=== PATIENT | female | born 1975 | race Caucasian/White ===

== ENCOUNTER 2017-07-15 08:58 | Inpatient (IN) | payer BC ==
[2017-07-15 10:12] LABS: Basophils % (Auto) 0.2 % (0.0-1.8); Eosinophils % (Auto) 0.5 % (0.0-4.3); Hematocrit 44.3 % (30.3-42.9); Hemoglobin 14.9 gm/dl (10.1-14.3); Lymphocytes # (Auto) 2.2 K/mm3 (1.2-5.4); Lymphocytes % (Auto) 23.4 % (13.4-35.0); Mean Corpuscular HGB Conc 34 % (30-34); Mean Corpuscular Hemoglobin 30 pg (28-32); Mean Corpuscular Volume 90 fl (79-97); Monocytes # (Auto) 0.6 K/mm3 (0.0-0.8); Monocytes % (Auto) 6.7 % (0.0-7.3); Platelet Count 324 K/mm3 (140-440); Red Blood Count 4.91 M/mm3 (3.65-5.03); Red Cell Distribution Width 13.2 % (13.2-15.2)
[2017-07-15 10:28] LABS: Free T4 (Free Thyroxine) 1.28 ng/dL (0.76-1.46)
[2017-07-15 11:25] LABS: Alanine Aminotransferase 198 units/L (7-56); Albumin 4.6 g/dL (3.9-5); BUN/Creatinine Ratio 18; Blood Urea Nitrogen 16 mg/dL (7-17); Calcium 10.2 mg/dL (8.4-10.2); Hemolysis Index 5
[2017-07-15] MEDS ORDERED: D50W (25GM) Syringe IV PRN (11:42)
[2017-07-15] MEDS ORDERED: NACL 0.9% 1000 ML 1,000 ML IV ONE ×3 (11:43→13:26)
--- NOTE | 2017-07-15 11:45 | Emergency Department Report ---
Blank Doc - Documentation Documentation: Patient is 42 years old female with no significant past medical history. Patient presented to the ER complaining of dizziness, generalized weakness, nausea and vomiting. Patient current blood sugar is 488 with anion gap of 34. Patient is in acute DKA. Patient will need to be more to main ED for DKA treatment and admission to ICU.
--- NOTE | 2017-07-15 12:16 | Emergency Department Report ---
HPI - General Chief Complaint: Dizziness Time Seen by Provider: 07/15/17 11:38 - HPI HPI: The patient is a 42-year-old female who presents for evaluation of generalized weakness and lightheadedness. The patient reports progressive generalized weakness and lightheadedness, severe the past week, exacerbated with position changes or exertion, and improved with supine positioning at rest. She also admits to recurrent dryness of mouth, polyphagia, and polyuria. The patient denies fever, headache, neck pain, paresthesias, focal motor weakness, blurry vision, ear pain, tinnitus, chest pain, hemoptysis, dyspnea, abdominal pain, confusion or altered mental status, or recent URI or diarrhea. ED Past Medical Hx - Past Medical History Previous Medical History?: No Additional medical history: Thryoid Disease, fibroids. - Surgical History Past Surgical History?: No - Social History Smoking Status: Never Smoker - Medications Home Medications: Home Medications Medication Instructions Recorded Confirmed Last Taken Type Cyclobenzaprine [Flexeril 10mg] 10 mg PO TID PRN #30 tablet 07/18/14 Unknown Rx HYDROcodone/APAP 5-325 [[place] 1 each PO Q6HR PRN #15 tablet 07/18/14 Unknown Rx 5/325] Ibuprofen [Motrin] 800 mg PO Q8H #30 tablet 07/18/14 Unknown Rx methylPREDNISolone [Medrol Dose 4 mg PO DAILY 6 Days tab 07/18/14 Unknown Rx Raj] ED Review of Systems ROS: Stated complaint: DIZZINESS Other details as noted in HPI Constitutional: denies: fever ENT: denies: throat or neck pain Respiratory: denies: cough, shortness of breath Cardiovascular: denies: chest pain Endocrine: denies unexplained weight loss or gain Gastrointestinal: denies: abdominal pain, nausea Genitourinary: denies: dysuria Musculoskeletal: denies: leg swelling Skin: denies: rash Neurological: denies: headache Hematological/Lymphatic: denies: easy bleeding or easy bruising Psych: denies sadness or hopelessness Physical Exam - Physical Exam Vital Signs: Vital Signs 07/15/17 09:21 Temperature 98.9 F Pulse Rate 90 Respiratory 16 Rate Blood Pressure 136/68 O2 Sat by Pulse 99 Oximetry Physical Exam: General: well-nourished, well-developed, no acute distress Head: Normocephalic, atraumatic Eyes: normal sclera ENT: Mucous membranes are pale and dry Neck: No neck stiffness, no cervical adenopathy Respiratory: Breath sounds equal bilaterally, no wheezing, rales, or rhonchi Cardio: S1 and S2 present, no murmurs, rubs, gallops, capillary refill is delayed Abdomen: Normoactive bowel sounds, soft abdomen, no rigidity, no guarding or rebound tenderness Chest WALL/Back: No tenderness to palpation of the chest wall, no CVA tenderness with percussion Musc: No pitting edema Skin: No rash Neuro: no facial drooping, normal speech Psych: Normal affect ED Course Vital Signs 07/15/17 09:21 Temperature 98.9 F Pulse Rate 90 Respiratory 16 Rate Blood Pressure 136/68 O2 Sat by Pulse 99 Oximetry ED Medical Decision Making - Lab Data Result diagrams: 07/15/17 09:37 07/15/17 09:37 - Medical Decision Making The patient was seen and examined by myself. The patient is placed on a electronic device monitor and continuous pulse ox. On initial evaluation, the patient was found to be in no distress. Evaluation orders were placed. Lab results reveal significantly elevated glucose greater than 400, low bicarbonate, increased anion gap 30, consistent with acute diabetic ketoacidosis. The patient is given multiple normal saline fluid boluses and started on insulin drip. The on- call hospitalist service was contacted. They agreed to admit the patient for further treatment and close monitoring. The ED admit order was placed. The patient was admitted in guarded condition. Critical care attestation.: If time is entered above; I have spent that time in minutes in the direct care of this critically ill patient, excluding procedure time. ED Disposition Clinical Impression: Dehydration, Generalized weakness, Orthostatic dizziness DKA (diabetic ketoacidoses) Qualifiers: Diabetes mellitus type: type 2 Disposition: OP ADMIT IP TO THIS HOSP Is pt being admited?: Yes Does the pt Need Aspirin: Yes Condition: Serious Instructions: Diabetic Ketoacidosis (ED) Referrals: PRIMARY CARE, [Primary Care Provider] - 3-5 Days Time of Disposition: 11:55
[2017-07-15] MEDS ORDERED: ZOFRAN IV ONE (12:19)
--- NOTE | 2017-07-15 12:25 | History and Physical Report ---
History of Present Illness Chief complaint: I feel dizzy History of present illness: 42 YO Female with Obesity, Uterine Fibroids presents to ED for evaluation. Pt states that she has experienced dizziness and weakness over the past 3 weeks, with worsening symptoms over the past 3 days. Pt acknowledges polydipsia, polyruia, polyphagia, as well as blurred vision, and tingling sensation in her legs. Pt seen and evaluated in ED and found to have new onset diabetes complicated by DKA. Pt inititated on DKA protocol. Pt admitted to ICU. Pt denies fever, chills, CP, Palpitations, Trauma, Syncope, prolonged travel/ immobility, unilateral leg swelling, calf pain, brbpr, productive cough, hemoptysis, individual/family history of DVT/PE, skin rash, unintentional weight loss, or night sweats. Past History Past Medical History: other (obesity) Past Surgical History: No surgical history, Other (reviewed) Social history: , lives with family Family history: hypertension Medications and Allergies Allergies Allergy/AdvReac Type Severity Reaction Status Date / Time No Known Allergies Allergy Unverified 07/17/14 22:40 Home Medications Medication Instructions Recorded Confirmed Last Taken Type Cholecalciferol (Vitamin D3) 1,000 unit PO DAILY 07/15/17 07/15/17 07/14/17 History [Vitamin D3] Cyanocobalamin [Vitamin B-12] 1,000 mcg PO DAILY 07/15/17 07/15/17 07/14/17 History Multivitamin Tab [Multiple Vitamin 1 each PO QDAY 07/15/17 07/15/17 07/14/17 History TAB (Theragran)] Active Meds: Active Medications Dextrose (D50w (25gm) Syringe) 0 ml IV PRN PRN PRN Reason: Hypoglycemia Sodium Chloride (Nacl 0.9% 1000 Ml) 1,000 mls @ 999 mls/hr IV BOLUS ONE Stop: 07/15/17 12:43 Insulin Human Regular 100 (units/ Sodium Chloride) 100 mls @ 1 mls/hr IV TITR [facility]MER; Protocol Sodium Chloride (Nacl 0.9% 1000 Ml) 1,000 mls @ 999 mls/hr IV BOLUS ONE Stop: 07/15/17 12:43 Review of Systems Constitutional: no weight loss, no weight gain, no fever, no chills Ears, nose, mouth and throat: no ear pain, no ear discharge, no tinnitis, no decreased hearing, no nose pain, no nasal congestion, no nasal discharge Breasts: no change in shape, no swelling, no mass Cardiovascular: no chest pain, no orthopnea, no palpitations, no rapid/ irregular heart beat, no edema, no syncope, no lightheadedness, no shortness of breath Respiratory: no cough, no cough with sputum, no excessive sputum Gastrointestinal: no nausea, no vomiting, no diarrhea Genitourinary Female: no dysmenorrhea, no pelvic pain, no flank pain, no menorrhagia, no dysuria, no urinary frequency Rectal: no pain, no incontinence, no bleeding Musculoskeletal: no neck stiffness, no neck pain, no shooting arm pain, no arm numbness/tingling, no shooting leg pain Integumentary: no rash, no pruritis, no redness, no sores, no wounds, no jaundice, no boils Neurological: no head injury, no transient paralysis, no paralysis, no weakness , no parathesias, no numbness, no tingling Psychiatric: no anxiety, no memory loss, no change in sleep habits, no sleep disturbances, no insomnia, no hypersomnia, no change in appetite, no change in libido, no suicidal ideation Endocrine: no cold intolerance, no heat intolerance, no polyphagia, no excessive thirst, no polydipsia, no polyuria, no nocturia, no excessive sweating Hematologic/Lymphatic: no easy bruising, no easy bleeding, no lymphadenopathy, no lymphedema Allergic/Immunologic: no urticaria, no allergic rhinitis, no wheezing, no persistent infections, no anaphylaxis Exam - Constitutional Vitals: Temp Pulse Resp BP Pulse Ox 98.9 F 90 18 136/68 99 07/15/17 09:21 07/15/17 09:21 07/15/17 12:18 07/15/17 09:21 07/15/17 09:21 General appearance: Present: mild distress - EENT Eyes: Present: PERRL ENT: hearing intact, clear oral mucosa (dry oral mucosa) - Neck Neck: Present: supple, normal ROM - Respiratory Respiratory effort: normal Respiratory: bilateral: CTA - Cardiovascular Heart Sounds: Present: S1 & S2. Absent: rub, click - Extremities Extremities: pulses symmetrical, No edema Peripheral Pulses: within normal limits - Abdominal General gastrointestinal: Present: soft, non-tender, non-distended, normal bowel sounds Female genitourinary: Present: normal - Integumentary Integumentary: Present: clear, warm, dry - Musculoskeletal Musculoskeletal: gait normal, strength equal bilaterally - Psychiatric Psychiatric: appropriate mood/affect, intact judgment & insight - Neurologic Neurologic: CNII-XII intact, moves all extremities Results - Labs CBC & Chem 7: 07/15/17 09:37 07/15/17 09:37 Labs: Abnormal lab results 07/15/17 07/15/17 Range/Units 09:37 09:37 Hgb 14.9 H (10.1-14.3) gm/dl Hct 44.3 H (30.3-42.9) % Chloride 93.5 L (98-107) mmol/L Carbon Dioxide 16 L (22-30) mmol/L Glucose 488 H (65-100) mg/dL AST 143 H (5-40) units/L ALT 198 H (7-56) units/L Alkaline Phosphatase 134 H (35-129) units/L Assessment and Plan - Patient Problems (1) DKA (diabetic ketoacidoses) Current Visit: Yes Status: Acute Qualifiers: Diabetes mellitus type: type 1 Plan to address problem: DKA Protocol: Insulin Drip, IVF resuscitation, monitor uop q shift, serial bmp, monitor anion gap, (2) Metabolic acidosis Current Visit: Yes Status: Acute Plan to address problem: treat dka, ivf resuscitation (3) DVT prophylaxis Current Visit: Yes Status: Acute Plan to address problem: SCD to BLE while in bed
[2017-07-15] MEDS ORDERED: SODIUM CHLORIDE FLUSH SYRINGE 10 ML IV PRN (12:26)
[2017-07-15] MEDS ORDERED: PROVENTIL IH PRN (12:26)
[2017-07-15] MEDS ORDERED: NORCO 5/325 PO PRN (12:28)
[2017-07-15] MEDS ORDERED: FLEXERIL PO PRN (12:28)
[2017-07-15 13:05] LABS: HCG Qualitative,Urine Negative (Negative)
[2017-07-15] MEDS: HumuLIN R 100 UNITS in NACL 0.9% 99 ML IV SCH (13:11)
[2017-07-15 13:13] LABS: Bacteria,Urine 1+ /HPF (Negative); Bilirubin,Urine NEG (Negative); Blood,Urine LG (Negative); Color,Urine Yellow (Yellow); Mucus,Urine FEW /HPF; Urobilinogen,Urine < 2.0 mg/dL (<2.0)
[2017-07-15 13:52] LABS: BUN/Creatinine Ratio 19; Blood Urea Nitrogen 17 mg/dL (7-17); Calcium 9.5 mg/dL (8.4-10.2); Hemolysis Index 488
--- NOTE | 2017-07-15 14:04 | XRay Report ---
ROUTINE CHEST, TWO VIEWS: HISTORY: Diabetic ketoacidosis. The trachea, heart, mediastinal contour, lung hawk and bony thorax are unremarkable. IMPRESSION: Unremarkable chest x-ray.
[2017-07-15 14:36] LABS: BUN/Creatinine Ratio 19; Blood Urea Nitrogen 15 mg/dL (7-17); Calcium 8.4 mg/dL (8.4-10.2); Hemolysis Index 4
[2017-07-15 15:30] LABS: BUN/Creatinine Ratio 19; Blood Urea Nitrogen 13 mg/dL (7-17); Calcium 8.1 mg/dL (8.4-10.2); Hemolysis Index 4
[2017-07-15] MEDS: MOTRIN PO SCH ×2 (16:49→23:10)
[2017-07-15] MEDS: D5W 1,000 ML IV SCH ×2 (17:14→23:15)
[2017-07-15 21:48] LABS: BUN/Creatinine Ratio 18; Blood Urea Nitrogen 11 mg/dL (7-17); Calcium 8.1 mg/dL (8.4-10.2); Hemolysis Index 29
[2017-07-15] MEDS: SODIUM CHLORIDE FLUSH SYRINGE 10 ML IV SCH (23:11)
[2017-07-16] MEDS: HumuLIN R 100 UNITS in NACL 0.9% 99 ML IV SCH (04:23)
[2017-07-16 05:03] LABS: BUN/Creatinine Ratio 20; Blood Urea Nitrogen 10 mg/dL (7-17); Calcium 8.4 mg/dL (8.4-10.2); Hemolysis Index 20
[2017-07-16] MEDS: MOTRIN PO SCH (06:26)
[2017-07-16] MEDS: KCL 10MEQ/100ML 10 MEQ/100 ML BAG IV SCH ×2 (08:48→10:00)
[2017-07-16] MEDS ORDERED: D5W/0.45% NACL/KCL 20 MEQ 20 MEQ/1,000 ML BAG IV SCH (09:00)
--- NOTE | 2017-07-16 09:58 | Consultation ---
History of Present Illness - Reason for Consult Consult date: 07/16/17 DKA Requesting physician: MIRA PICKETT - History of Present Illness 42 y/o female with DKA. New diagnosis per report. Has had polydipsia and polyuria with some nausea. Started on IVF's and insulin drip. Anion Gap is now closed. Past History Past Medical History: other (obesity) Past Surgical History: No surgical history, Other (reviewed) Social history: , lives with family Family history: hypertension Medications and Allergies Allergies Allergy/AdvReac Type Severity Reaction Status Date / Time No Known Allergies Allergy Unverified 07/17/14 22:40 Home Medications Medication Instructions Recorded Confirmed Last Taken Type Cholecalciferol (Vitamin D3) 1,000 unit PO DAILY 07/15/17 07/15/17 07/14/17 History [Vitamin D3] Cyanocobalamin [Vitamin B-12] 1,000 mcg PO DAILY 07/15/17 07/15/17 07/14/17 History Multivitamin Tab [Multiple Vitamin 1 each PO QDAY 07/15/17 07/15/17 07/14/17 History TAB (Theragran)] Active Meds: Active Medications Acetaminophen/Hydrocodone Bitart ([place] 5/325) 1 each PO Q6HR PRN PRN Reason: Pain Albuterol (Proventil) 2.5 mg IH Q3HRT PRN PRN Reason: Shortness Of Breath Cyclobenzaprine HCl (Flexeril) 10 mg PO TID PRN PRN Reason: Muscle Spasm Dextrose (D50w (25gm) Syringe) 0 ml IV PRN PRN PRN Reason: Hypoglycemia Insulin Human Regular 100 (units/ Sodium Chloride) 100 mls @ 1 mls/hr IV TITR [place]; Protocol Last Titration: 07/16/17 09:10 Dose: 12 units/hr, 12 mls/hr Sodium Chloride (Nacl 0.9% 1000 Ml) 1,000 mls @ 125 mls/hr IV DIRECT [place] Potassium Chloride (Kcl 10meq/100ml) 10 meq in 100 mls @ 100 mls/hr IV Q1H [place] Stop: 07/16/17 12:59 Last Admin: 07/16/17 08:48 Dose: 100 mls/hr Potassium Chloride/Dextrose/Sod Cl (D5w/0.45% Nacl/Kcl 20 Meq) 20 meq in 1,000 mls @ 125 mls/hr IV DIRECT [facility] Last Admin: 07/16/17 08:49 Dose: 125 mls/hr Influenza Virus Vaccine Quadrival (Fluarix Quad [id number](36 Mos+) 0.5 ml IM .ONCE ONE Stop: 07/16/17 12:01 Sodium Chloride (Sodium Chloride Flush Syringe 10 Ml) 10 ml IV BID [facility] Last Admin: 07/15/17 23:11 Dose: 10 ml Sodium Chloride (Sodium Chloride Flush Syringe 10 Ml) 10 ml IV PRN PRN PRN Reason: LINE FLUSH Review of Systems All systems: negative Exam - Constitutional Vitals: Temp Pulse Resp BP Pulse Ox 97.8 F 58 L 19 112/59 100 07/16/17 04:00 07/16/17 08:50 07/16/17 08:50 07/16/17 08:50 07/16/17 08:50 General appearance: Present: no acute distress, well-nourished, obese - EENT Eyes: Present: PERRL, EOM intact ENT: hearing intact, clear oral mucosa, dentition normal - Neck Neck: Present: supple, normal ROM, other (large in circumference) - Respiratory Respiratory effort: normal Respiratory: bilateral: CTA - Cardiovascular Rhythm: regular Results - Labs CBC & Chem 7: 07/15/17 09:37 07/16/17 04:07 Labs: Abnormal lab results 07/15/17 07/15/17 07/15/17 Range/Units 09:37 09:37 09:37 Hgb 14.9 H (10.1-14.3) gm/dl Hct 44.3 H (30.3-42.9) % Sodium (137-145) mmol/L Potassium (3.6-5.0) mmol/L Chloride 93.5 L (98-107) mmol/L Carbon Dioxide 16 L (22-30) mmol/L Creatinine (0.7-1.2) mg/dL Glucose 488 H (65-100) mg/dL POC Glucose (70-105) Hemoglobin A1c 14.0 H (4-6) % Lactic Acid (0.7-2.0) mmol/L Calcium (8.4-10.2) mg/dL AST 143 H (5-40) units/L ALT 198 H (7-56) units/L Alkaline Phosphatase 134 H (35-129) units/L Urine WBC (Auto) (0.0-6.0) /HPF 07/15/17 07/15/17 07/15/17 Range/Units 12:20 12:20 12:45 Hgb (10.1-14.3) gm/dl Hct (30.3-42.9) % Sodium 132 L D (137-145) mmol/L Potassium 6.1 H* D (3.6-5.0) mmol/L Chloride 90.4 L (98-107) mmol/L Carbon Dioxide 9 L* D (22-30) mmol/L Creatinine (0.7-1.2) mg/dL Glucose 466 H (65-100) mg/dL POC Glucose (70-105) Hemoglobin A1c (4-6) % Lactic Acid 2.80 H* (0.7-2.0) mmol/L Calcium (8.4-10.2) mg/dL AST (5-40) units/L ALT (7-56) units/L Alkaline Phosphatase (35-129) units/L Urine WBC (Auto) 7.0 H (0.0-6.0) /HPF 07/15/17 07/15/17 07/15/17 Range/Units 13:14 13:50 14:19 Hgb (10.1-14.3) gm/dl Hct (30.3-42.9) % Sodium (137-145) mmol/L Potassium (3.6-5.0) mmol/L Chloride (98-107) mmol/L Carbon Dioxide 12 L (22-30) mmol/L Creatinine (0.7-1.2) mg/dL Glucose 367 H (65-100) mg/dL POC Glucose 413 H 364 H (70-105) Hemoglobin A1c (4-6) % Lactic Acid (0.7-2.0) mmol/L Calcium (8.4-10.2) mg/dL AST (5-40) units/L ALT (7-56) units/L Alkaline Phosphatase (35-129) units/L Urine WBC (Auto) (0.0-6.0) /HPF 07/15/17 07/15/17 07/15/17 Range/Units 15:01 16:50 18:09 Hgb (10.1-14.3) gm/dl Hct (30.3-42.9) % Sodium (137-145) mmol/L Potassium (3.6-5.0) mmol/L Chloride (98-107) mmol/L Carbon Dioxide 13 L (22-30) mmol/L Creatinine (0.7-1.2) mg/dL Glucose 283 H (65-100) mg/dL POC Glucose 227 H 237 H (70-105) Hemoglobin A1c (4-6) % Lactic Acid (0.7-2.0) mmol/L Calcium 8.1 L (8.4-10.2) mg/dL AST (5-40) units/L ALT (7-56) units/L Alkaline Phosphatase (35-129) units/L Urine WBC (Auto) (0.0-6.0) /HPF 07/15/17 07/15/17 07/15/17 Range/Units 19:59 21:05 21:16 Hgb (10.1-14.3) gm/dl Hct (30.3-42.9) % Sodium (137-145) mmol/L Potassium (3.6-5.0) mmol/L Chloride (98-107) mmol/L Carbon Dioxide 18 L (22-30) mmol/L Creatinine 0.6 L (0.7-1.2) mg/dL Glucose 203 H (65-100) mg/dL POC Glucose 218 H 180 H (70-105) Hemoglobin A1c (4-6) % Lactic Acid (0.7-2.0) mmol/L Calcium 8.1 L (8.4-10.2) mg/dL AST (5-40) units/L ALT (7-56) units/L Alkaline Phosphatase (35-129) units/L Urine WBC (Auto) (0.0-6.0) /[facility] 07/15/17 07/15/17 07/15/17 Range/Units 22:25 23:09 23:48 Hgb (10.1-14.3) gm/dl Hct (30.3-42.9) % Sodium (137-145) mmol/L Potassium (3.6-5.0) mmol/L Chloride (98-107) mmol/L Carbon Dioxide (22-30) mmol/L Creatinine (0.7-1.2) mg/dL Glucose (65-100) mg/dL POC Glucose 215 H 218 H 201 H (70-105) Hemoglobin A1c (4-6) % Lactic Acid (0.7-2.0) mmol/L Calcium (8.4-10.2) mg/dL AST (5-40) units/L ALT (7-56) units/L Alkaline Phosphatase (35-129) units/L Urine WBC (Auto) (0.0-6.0) /HPF 07/16/17 07/16/17 07/16/17 Range/Units 01:15 02:13 03:23 Hgb (10.1-14.3) gm/dl Hct (30.3-42.9) % Sodium (137-145) mmol/L Potassium (3.6-5.0) mmol/L Chloride (98-107) mmol/L Carbon Dioxide (22-30) mmol/L Creatinine (0.7-1.2) mg/dL Glucose (65-100) mg/dL POC Glucose 214 H 227 H 234 H (70-105) Hemoglobin A1c (4-6) % Lactic Acid (0.7-2.0) mmol/L Calcium (8.4-10.2) mg/dL AST (5-40) units/L ALT (7-56) units/L Alkaline Phosphatase (35-129) units/L Urine WBC (Auto) (0.0-6.0) /HPF 07/16/17 07/16/17 07/16/17 Range/Units 04:00 04:07 05:49 Hgb (10.1-14.3) gm/dl Hct (30.3-42.9) % Sodium 136 L (137-145) mmol/L Potassium 3.4 L (3.6-5.0) mmol/L Chloride (98-107) mmol/L Carbon Dioxide 17 L (22-30) mmol/L Creatinine 0.5 L (0.7-1.2) mg/dL Glucose 207 H (65-100) mg/dL POC Glucose 242 H 228 H (70-105) Hemoglobin A1c (4-6) % Lactic Acid (0.7-2.0) mmol/L Calcium (8.4-10.2) mg/dL AST (5-40) units/L ALT (7-56) units/L Alkaline Phosphatase (35-129) units/L Urine WBC (Auto) (0.0-6.0) /HPF 07/16/17 Range/Units 06:25 Hgb (10.1-14.3) gm/dl Hct (30.3-42.9) % Sodium (137-145) mmol/L Potassium (3.6-5.0) mmol/L Chloride (98-107) mmol/L Carbon Dioxide (22-30) mmol/L Creatinine (0.7-1.2) mg/dL Glucose (65-100) mg/dL POC Glucose 246 H (70-105) Hemoglobin A1c (4-6) % Lactic Acid (0.7-2.0) mmol/L Calcium (8.4-10.2) mg/dL AST (5-40) units/L ALT (7-56) units/L Alkaline Phosphatase (35-129) units/L Urine WBC (Auto) (0.0-6.0) /HPF - Imaging and Cardiology Chest x-ray: image reviewed (clear) Assessment and Plan 42 y/o female with new diagnosis of diabetes. 1. Education on diabetes. 2. Calculate total insulin needs and start long acting 3. Discontinue Insulin drip after starting long acting insulin 4. Weight loss 5. A1c 6. Should be stable for transfer out of unit. CCT 31 minutes.
[2017-07-16] MEDS: SODIUM CHLORIDE FLUSH SYRINGE 10 ML IV SCH ×2 (10:00→22:42)
[2017-07-16] MEDS ORDERED: LANTUS SUB-Q ONE (11:00)
[2017-07-16] MEDS ORDERED: HumaLOG SUB-Q SCH ×2 (11:30)
[2017-07-16] MEDS ORDERED: Fluarix Quad 2017-2018(36 MOS+ IM ONE (12:00)
--- NOTE | 2017-07-16 14:15 | Progress Note ---
Assessment and Plan - Patient Problems (1) DKA (diabetic ketoacidoses) Current Visit: Yes Status: Acute Qualifiers: Diabetes mellitus type: type 2 Plan to address problem: New onset Diabetes Hba1c 14.0 Will switch to basal bolus regimen. Patient is agreeable Transfer to regular floor Discharge in one to 2 days (2) Transaminitis Current Visit: Yes Status: Acute Plan to address problem: Hepatitis profile ordered (3) UTI (urinary tract infection) Current Visit: Yes Status: Acute Qualifiers: Urinary tract infection type: acute cystitis Plan to address problem: On Rocephin (4) Hypokalemia Current Visit: Yes Status: Acute Plan to address problem: Supplemented (5) DVT prophylaxis Current Visit: Yes Status: Acute Subjective Date of service: 07/16/17 Principal diagnosis: New onset Diabetes with DKA Interval history: Symptomatically better Objective - Constitutional Vitals: Vital Signs - 12hr 07/16/17 07/16/17 07/16/17 02:20 02:30 02:40 Temperature Pulse Rate 65 62 61 Pulse Rate [ From Monitor] Respiratory 20 20 18 Rate Blood Pressure 124/55 124/55 124/55 O2 Sat by Pulse 100 100 99 Oximetry 07/16/17 07/16/17 07/16/17 02:50 03:00 03:10 Temperature Pulse Rate 64 62 64 Pulse Rate [ From Monitor] Respiratory 19 17 17 Rate Blood Pressure 124/55 126/64 126/64 O2 Sat by Pulse 99 99 98 Oximetry 07/16/17 07/16/17 07/16/17 03:20 03:30 03:40 Temperature Pulse Rate 65 63 63 Pulse Rate [ From Monitor] Respiratory 20 18 18 Rate Blood Pressure 126/64 126/64 126/64 O2 Sat by Pulse 98 98 98 Oximetry 07/16/17 07/16/17 07/16/17 03:48 03:50 04:00 Temperature 97.8 F Pulse Rate 64 63 Pulse Rate [ 76 From Monitor] Respiratory 18 17 18 Rate Blood Pressure 126/64 126/63 O2 Sat by Pulse 100 97 97 Oximetry 07/16/17 07/16/17 07/16/17 04:10 04:20 04:30 Temperature Pulse Rate 64 61 61 Pulse Rate [ From Monitor] Respiratory 20 19 16 Rate Blood Pressure 126/63 126/63 126/63 O2 Sat by Pulse 99 98 97 Oximetry 0407/16/17 07/16/17 04:40 04:50 05:00 Temperature Pulse Rate 63 64 61 Pulse Rate [ From Monitor] Respiratory 20 17 20 Rate Blood Pressure 126/63 126/63 118/57 O2 Sat by Pulse 97 97 98 Oximetry 07/16/17 07/16/17 07/16/17 05:10 05:20 05:30 Temperature Pulse Rate 60 67 61 Pulse Rate [ From Monitor] Respiratory 21 20 18 Rate Blood Pressure 118/57 118/57 118/57 O2 Sat by Pulse 98 99 100 Oximetry 07/16/17 07/16/17 07/16/17 05:40 05:50 06:00 Temperature Pulse Rate 57 L 57 L 58 L Pulse Rate [ From Monitor] Respiratory 19 19 21 Rate Blood Pressure 118/57 118/57 115/56 O2 Sat by Pulse 100 99 100 Oximetry 07/16/17 07/16/17 07/16/17 06:10 06:20 06:30 Temperature Pulse Rate 59 L 59 L 61 Pulse Rate [ From Monitor] Respiratory 19 19 17 Rate Blood Pressure 115/56 115/56 115/56 O2 Sat by Pulse 99 99 98 Oximetry 07/16/17 07/16/17 07/16/17 06:40 06:50 07:00 Temperature Pulse Rate 61 63 59 L Pulse Rate [ From Monitor] Respiratory 17 18 16 Rate Blood Pressure 115/56 115/56 128/58 O2 Sat by Pulse 98 98 98 Oximetry 07/16/17 07/16/17 07/16/17 07:10 07:20 07:30 Temperature Pulse Rate 68 62 62 Pulse Rate [ From Monitor] Respiratory 18 17 17 Rate Blood Pressure 128/58 128/58 128/58 O2 Sat by Pulse 96 99 99 Oximetry 07/16/17 07/16/17 07/16/17 07:40 07:50 08:00 Temperature 98.7 F Pulse Rate 62 64 92 H Pulse Rate [ From Monitor] Respiratory 21 20 17 Rate Blood Pressure 128/58 128/58 128/58 O2 Sat by Pulse 100 100 99 Oximetry 07/16/17 07/16/17 07/16/17 08:10 08:20 08:30 Temperature Pulse Rate 60 59 L 67 Pulse Rate [ From Monitor] Respiratory 20 25 H 15 Rate Blood Pressure 112/59 112/59 112/59 O2 Sat by Pulse 100 100 100 Oximetry 07/16/17 07/16/17 07/16/17 08:31 08:40 08:50 Temperature Pulse Rate 59 L 58 L Pulse Rate [ From Monitor] Respiratory 19 19 Rate Blood Pressure 112/59 112/59 O2 Sat by Pulse 100 99 100 Oximetry 07/16/17 07/16/17 07/16/17 09:00 09:10 09:20 Temperature Pulse Rate 62 74 63 Pulse Rate [ From Monitor] Respiratory 19 22 19 Rate Blood Pressure 112/59 112/59 112/59 O2 Sat by Pulse 100 100 100 Oximetry 07/16/17 07/16/17 07/16/17 09:30 09:40 09:50 Temperature Pulse Rate 61 79 67 Pulse Rate [ From Monitor] Respiratory 20 22 19 Rate Blood Pressure 112/59 112/59 112/59 O2 Sat by Pulse 99 100 100 Oximetry 07/16/17 07/16/17 07/16/17 10:00 10:10 10:20 Temperature Pulse Rate 66 72 67 Pulse Rate [ From Monitor] Respiratory 24 25 H 21 Rate Blood Pressure 127/74 127/74 127/74 O2 Sat by Pulse 100 100 100 Oximetry 07/16/17 07/16/17 07/16/17 10:30 10:40 10:50 Temperature Pulse Rate 68 64 66 Pulse Rate [ From Monitor] Respiratory 20 20 19 Rate Blood Pressure 127/74 127/74 127/74 O2 Sat by Pulse 99 99 99 Oximetry 07/16/17 07/16/17 07/16/17 11:00 11:10 11:20 Temperature Pulse Rate 71 65 64 Pulse Rate [ From Monitor] Respiratory 15 21 21 Rate Blood Pressure 127/74 127/74 127/74 O2 Sat by Pulse 99 98 97 Oximetry 07/16/17 07/16/17 07/16/17 11:30 11:40 11:50 Temperature Pulse Rate 63 67 82 Pulse Rate [ From Monitor] Respiratory 24 15 20 Rate Blood Pressure 127/74 127/74 127/74 O2 Sat by Pulse 98 98 99 Oximetry 07/16/17 07/16/17 07/16/17 12:00 12:10 12:15 Temperature 98 F Pulse Rate 77 84 Pulse Rate [ From Monitor] Respiratory 18 12 Rate Blood Pressure 128/65 128/65 O2 Sat by Pulse 98 98 100 Oximetry 07/16/17 07/16/17 07/16/17 12:20 12:30 12:40 Temperature Pulse Rate 72 75 76 Pulse Rate [ From Monitor] Respiratory 24 25 H 24 Rate Blood Pressure 128/65 128/65 128/65 O2 Sat by Pulse 98 97 97 Oximetry 07/16/17 07/16/17 12:50 13:00 Temperature Pulse Rate 102 H 78 Pulse Rate [ From Monitor] Respiratory 25 H 30 H Rate Blood Pressure 128/65 128/65 O2 Sat by Pulse 98 98 Oximetry General appearance: Present: no acute distress, well-nourished - EENT Eyes: PERRL, EOM intact ENT: hearing intact, clear oral mucosa Ears: bilateral: normal - Neck Neck: supple, normal ROM - Respiratory Respiratory effort: normal Respiratory: bilateral: CTA - Breasts Breasts: deferred - Cardiovascular Heart rate: 80 Rhythm: regular Heart Sounds: Present: S1 & S2. Absent: gallop, rub Extremities: no ischemia, pulses intact, No edema, normal color, Full ROM - Gastrointestinal General gastrointestinal: Present: soft, non-tender, non-distended, normal bowel sounds - Genitourinary Female genitourinary: normal - Integumentary Integumentary: clear, warm, dry - Musculoskeletal Musculoskeletal: 1, strength equal bilaterally - Neurologic Neurologic: moves all extremities - Psychiatric Psychiatric: memory intact, appropriate mood/affect, intact judgment & insight - Allied health notes Allied health notes reviewed: nursing, case management - Labs CBC & Chem 7: 07/15/17 09:37 07/16/17 04:07 Labs: Abnormal lab results 07/15/17 07/15/17 07/15/17 Range/Units 13:50 14:19 15:01 Sodium (137-145) mmol/L Potassium (3.6-5.0) mmol/L Carbon Dioxide 12 L 13 L (22-30) mmol/L Creatinine (0.7-1.2) mg/dL Glucose 367 H 283 H (65-100) mg/dL POC Glucose 364 H (70-105) Calcium 8.1 L (8.4-10.2) mg/dL 07/15/17 07/15/17 07/15/17 Range/Units 15:33 16:50 18:09 Sodium (137-145) mmol/L Potassium (3.6-5.0) mmol/L Carbon Dioxide (22-30) mmol/L Creatinine (0.7-1.2) mg/dL Glucose (65-100) mg/dL POC Glucose 283 H 227 H 237 H (70-105) Calcium (8.4-10.2) mg/dL 07/15/17 07/15/17 07/15/17 Range/Units 19:59 21:05 21:16 Sodium (137-145) mmol/L Potassium (3.6-5.0) mmol/L Carbon Dioxide 18 L (22-30) mmol/L Creatinine 0.6 L (0.7-1.2) mg/dL Glucose 203 H (65-100) mg/dL POC Glucose 218 H 180 H (70-105) Calcium 8.1 L (8.4-10.2) mg/dL 07/15/17 07/15/17 07/15/17 Range/Units 22:25 23:09 23:48 Sodium (137-145) mmol/L Potassium (3.6-5.0) mmol/L Carbon Dioxide (22-30) mmol/L Creatinine (0.7-1.2) mg/dL Glucose (65-100) mg/dL POC Glucose 215 H 218 H 201 H (70-105) Calcium (8.4-10.2) mg/dL 07/16/17 07/16/17 07/16/17 Range/Units 01:15 02:13 03:23 Sodium (137-145) mmol/L Potassium (3.6-5.0) mmol/L Carbon Dioxide (22-30) mmol/L Creatinine (0.7-1.2) mg/dL Glucose (65-100) mg/dL POC Glucose 214 H 227 H 234 H (70-105) Calcium (8.4-10.2) mg/dL 07/16/17 07/16/17 07/16/17 Range/Units 04:00 04:07 05:49 Sodium 136 L (137-145) mmol/L Potassium 3.4 L (3.6-5.0) mmol/L Carbon Dioxide 17 L (22-30) mmol/L Creatinine 0.5 L (0.7-1.2) mg/dL Glucose 207 H (65-100) mg/dL POC Glucose 242 H 228 H (70-105) Calcium (8.4-10.2) mg/dL 07/16/17 07/16/17 07/16/17 Range/Units 06:25 08:13 09:15 Sodium (137-145) mmol/L Potassium (3.6-5.0) mmol/L Carbon Dioxide (22-30) mmol/L Creatinine (0.7-1.2) mg/dL Glucose (65-100) mg/dL POC Glucose 246 H 263 H 240 H (70-105) Calcium (8.4-10.2) mg/dL 07/16/17 07/16/17 Range/Units 10:24 11:27 Sodium (137-145) mmol/L Potassium (3.6-5.0) mmol/L Carbon Dioxide (22-30) mmol/L Creatinine (0.7-1.2) mg/dL Glucose (65-100) mg/dL POC Glucose 203 H 172 H (70-105) Calcium (8.4-10.2) mg/dL
[2017-07-16] MEDS: HumaLOG SUB-Q SCH ×2 (16:08→22:38)
[2017-07-16] MEDS ORDERED: LANTUS SUB-Q SCH (22:00)
[2017-07-16] MEDS: NACL 0.9% 1000 ML 1,000 ML IV SCH (22:41)
[2017-07-17] MEDS: HumaLOG SUB-Q SCH ×10 (02:50→23:28)
--- NOTE | 2017-07-17 08:57 | Progress Note ---
Assessment and Plan Assessment and plan: --Diabetic ketoacidosis; resolved Continue current management --Type 1 diabetes mellitus; uncontrolled Hemoglobin A1c 14, Accu-Chek sliding scale coverage and ADA diet Insulin NovoLog as well as Lantus Diabetic education, nutrition consult --Transaminitis; closely monitor LFTs Consider abdominal ultrasound, GI consult if needed Hepatitis panel if no improvement --Urinary tract infection; continue empiric antibiotics Follow cultures --DVT prophylaxis; Lovenox --DC planning; possible home health nurse for disease monitoring At the time of discharge History Interval history: Patient seen and examined medical records reviewed No new events reported by the nursing staff Blood sugars are still high Patient feels better no new complaints Vital signs reviewed Hospitalist Physical - Constitutional Vitals: Temp Pulse Resp BP Pulse Ox 98.9 F 65 20 110/65 98 07/17/17 07:49 07/17/17 07:49 07/17/17 07:49 07/17/17 07:49 07/17/17 07:49 General appearance: Present: no acute distress, well-nourished, obese - EENT Eyes: Present: PERRL, EOM intact - Neck Neck: Present: supple, normal ROM - Respiratory Respiratory effort: normal Respiratory: negative: rales, rhonchi, wheezing - Cardiovascular Rhythm: regular Heart Sounds: Present: S1 & S2 - Extremities Extremities: no ischemia, No edema - Abdominal General gastrointestinal: soft, non-tender, non-distended, normal bowel sounds - Integumentary Integumentary: Present: clear, warm - Psychiatric Psychiatric: appropriate mood/affect, cooperative - Neurologic Neurologic: CNII-XII intact, moves all extremities Results - Labs CBC & Chem 7: 07/15/17 09:37 07/16/17 04:07 Labs: Laboratory Last Values WBC 9.2 K/mm3 (4.5-11.0) 07/15/17 09:37 RBC 4.91 M/mm3 (3.65-5.03) 07/15/17 09:37 Hgb 14.9 gm/dl (10.1-14.3) H 07/15/17 09:37 Hct 44.3 % (30.3-42.9) H 07/15/17 09:37 MCV 90 fl (79-97) 07/15/17 09:37 MCH 30 pg (28-32) 07/15/17 09:37 MCHC 34 % (30-34) 07/15/17 09:37 RDW 13.2 % (13.2-15.2) 07/15/17 09:37 Plt Count 324 K/mm3 (140-440) 07/15/17 09:37 Lymph % (Auto) 23.4 % (13.4-35.0) 07/15/17 09:37 [place] % (Auto) 6.7 % (0.0-7.3) 07/15/17 09:37 Eos % (Auto) 0.5 % (0.0-4.3) 07/15/17 09:37 Baso % (Auto) 0.2 % (0.0-1.8) 07/15/17 09:37 Lymph # 2.2 K/mm3 (1.2-5.4) 07/15/17 09:37 [place] # 0.6 K/mm3 (0.0-0.8) 07/15/17 09:37 Eos # 0.0 K/mm3 (0.0-0.4) 07/15/17 09:37 Baso # 0.0 K/mm3 (0.0-0.1) 07/15/17 09:37 Seg Neutrophils % 69.2 % (40.0-70.0) 07/15/17 09:37 Seg Neutrophils # 6.4 K/mm3 (1.8-7.7) 07/15/17 09:37 Sodium 136 mmol/L (137-145) L 07/16/17 04:07 Potassium 3.4 mmol/L (3.6-5.0) L 07/16/17 04:07 Chloride 103.4 mmol/L (98-107) 07/16/17 04:07 Carbon Dioxide 17 mmol/L (22-30) L 07/16/17 04:07 Anion Gap 19 mmol/L 07/16/17 04:07 BUN 10 mg/dL (7-17) 07/16/17 04:07 Creatinine 0.5 mg/dL (0.7-1.2) L 07/16/17 04:07 Estimated GFR > 60 ml/min 07/16/17 04:07 BUN/Creatinine Ratio 20 % 07/16/17 04:07 Glucose 207 mg/dL (65-100) H 07/16/17 04:07 POC Glucose 206 (70-105) H 07/17/17 06:20 Hemoglobin A1c 14.0 % (4-6) H 07/15/17 09:37 Lactic Acid 1.30 mmol/L (0.7-2.0) 07/15/17 13:50 Calcium 8.4 mg/dL (8.4-10.2) 07/16/17 04:07 Phosphorus 4.20 mg/dL (2.5-4.5) 07/15/17 12:20 Magnesium 2.30 mg/dL (1.7-2.3) 07/15/17 12:20 Total Bilirubin 0.40 mg/dL (0.1-1.2) 07/15/17 09:37 AST 143 units/L (5-40) H 07/15/17 09:37 ALT 198 units/L (7-56) H 07/15/17 09:37 Alkaline Phosphatase 134 units/L (35-129) H 07/15/17 09:37 Total Protein 7.7 g/dL (6.3-8.2) 07/15/17 09:37 Albumin 4.6 g/dL (3.9-5) 07/15/17 09:37 Albumin/Globulin Ratio 1.5 % 07/15/17 09:37 TSH 2.180 mlU/mL (0.270-4.200) 07/15/17 09:37 Free T4 1.30 ng/dL (0.76-1.46) 07/15/17 09:37 Urine Color Yellow (Yellow) 07/15/17 12:45 Urine Turbidity Hazy (Clear) 07/15/17 12:45 Urine pH 5.0 (5.0-7.0) 07/15/17 12:45 Ur Specific [place] 1.023 (1.003-1.030) 07/15/17 12:45 Urine Protein 30 mg/dl mg/dL (Negative) 07/15/17 12:45 Urine Glucose (UA) >=500 mg/dL (Negative) 07/15/17 12:45 Urine Ketones 80 mg/dL (Negative) 07/15/17 12:45 Urine Blood Lg (Negative) 07/15/17 12:45 Urine Nitrite Neg (Negative) 07/15/17 12:45 Ur Reducing Substances Not Reportable 07/15/17 12:45 Urine Bilirubin Neg (Negative) 07/15/17 12:45 Urine Ictotest Not Reportable 07/15/17 12:45 Urine Urobilinogen < 2.0 mg/dL (<2.0) 07/15/17 12:45 Ur Leukocyte Esterase Sm (Negative) 07/15/17 12:45 Urine WBC (Auto) 7.0 /HPF (0.0-6.0) H 07/15/17 12:45 Urine RBC (Auto) 59.0 /HPF (0.0-6.0) 07/15/17 12:45 U Epithel Cells (Auto) 5.0 /HPF (0-13.0) 07/15/17 12:45 Urine Bacteria (Auto) 1+ /HPF (Negative) 07/15/17 12:45 Urine Mucus Few /HPF 07/15/17 12:45 Urine HCG, Qual Negative (Negative) 07/15/17 12:45
[2017-07-17] MEDS: VITAMIN D3 PO SCH (09:33)
[2017-07-17] MEDS: SODIUM CHLORIDE FLUSH SYRINGE 10 ML IV SCH ×2 (09:34→23:35)
[2017-07-17] MEDS ORDERED: VITAMIN B-12 PO SCH (10:00)
[2017-07-17] MEDS: cefTRIAXone 1 GM in NACL 0.9% 20 ML IV SCH (11:52)
--- NOTE | 2017-07-17 13:28 | Progress Note ---
Assessment and Plan 42 y/o female with new diagnosis of diabetes. 1. Education on diabetes. 2. Weight loss 3. Will sign off. Subjective Date of service: 07/17/17 Principal diagnosis: New onset Diabetes with DKA Interval history: Successful transfer out of ICU Objective - Constitutional Vitals: Vital Signs - 12hr 07/17/17 07/17/17 07/17/17 07:49 10:00 12:01 Temperature 98.9 F Pulse Rate 65 65 Respiratory 20 Rate Blood Pressure 110/65 O2 Sat by Pulse 98 100 Oximetry - Labs CBC & Chem 7: 07/15/17 09:37 07/16/17 04:07 Labs: Abnormal lab results 07/15/17 07/16/17 07/17/17 Range/Units 19:10 21:01 02:45 POC Glucose 244 H 391 H 255 H (70-105) 07/17/17 07/17/17 Range/Units 06:20 09:45 POC Glucose 206 H 225 H (70-105)
[2017-07-17 16:36] LABS: Hepatitis A Antibody IgM Non-Reactive (NonReactive); Hepatitis B Core IgM Non-Reactive (NonReactive); Hepatitis B Surface Antigen Non-Reactive (Negative); Hepatitis C Virus Antibody Non-Reactive (NonReactive)
[2017-07-17] MEDS ORDERED: LANTUS SUB-Q SCH (22:00)
[2017-07-17] MEDS: LOVENOX SUB-Q SCH (23:31)
[2017-07-18 06:24] LABS: Alanine Aminotransferase 143 units/L (7-56); Albumin 3.3 g/dL (3.9-5); BUN/Creatinine Ratio 23; Blood Urea Nitrogen 9 mg/dL (7-17); Calcium 8.5 mg/dL (8.4-10.2); Hemolysis Index 71
[2017-07-18] MEDS: HumaLOG SUB-Q SCH ×8 (08:30→22:54)
[2017-07-18] MEDS: NACL 0.9% 1000 ML 1,000 ML IV SCH (08:54)
[2017-07-18] MEDS ORDERED: K-DUR PO ONE (12:00)
[2017-07-18] MEDS: cefTRIAXone 1 GM in NACL 0.9% 20 ML IV SCH (12:29)
[2017-07-18] MEDS: VITAMIN D3 PO SCH (12:29)
[2017-07-18] MEDS: SODIUM CHLORIDE FLUSH SYRINGE 10 ML IV SCH (13:00)
--- NOTE | 2017-07-18 19:54 | Progress Note ---
Assessment and Plan Assessment and plan: --Diabetic ketoacidosis; resolved Continue supportive care --Type 2 diabetes mellitus; new onset ,uncontrolled Hemoglobin A1c 14, Accu-Chek sliding scale coverage and ADA diet Increase Insulin NovoLog as well as Lantus Diabetic education, nutrition consult --Transaminitis; closely monitor LFTs Trending down, closely monitor Hepatitis panel if no improvement --Urinary tract infection; continue empiric antibiotics Follow cultures --DVT prophylaxis; Lovenox --DC planning; possible home health nurse for disease monitoring At the time of discharge Possible discharge tomorrow if stable Plan of care reviewed with the patient and her at the bedside Discussed with patient's nurse and case management History Interval history: Patient Seen and examined medical records reviewed Blood sugars are still about 200 Patient does not feel good, reports that she was given snacks last night with high sugar content By the nurse, patient feels little dull and heavy Denies chest pain or shortness of breath Denies headache or dizziness Vital signs reviewed Hospitalist Physical - Constitutional Vitals: Temp Pulse Resp BP Pulse Ox 98.6 F 73 18 124/78 97 07/18/17 17:02 07/18/17 17:02 07/18/17 17:02 07/18/17 17:02 07/18/17 17:02 General appearance: Present: no acute distress, well-nourished, obese - EENT Eyes: Present: PERRL, EOM intact - Neck Neck: Present: supple, normal ROM - Respiratory Respiratory effort: normal Respiratory: bilateral: diminished, negative: rales, rhonchi, wheezing - Cardiovascular Rhythm: regular Heart Sounds: Present: S1 & S2 - Extremities Extremities: no ischemia, No edema - Abdominal General gastrointestinal: soft, non-tender, non-distended, normal bowel sounds - Integumentary Integumentary: Present: clear, warm - Psychiatric Psychiatric: appropriate mood/affect, cooperative - Neurologic Neurologic: CNII-XII intact, moves all extremities Results - Labs CBC & Chem 7: 07/15/17 09:37 07/18/17 05:10 Labs: Laboratory Last Values WBC 9.2 K/mm3 (4.5-11.0) 07/15/17 09:37 RBC 4.91 M/mm3 (3.65-5.03) 07/15/17 09:37 Hgb 14.9 gm/dl (10.1-14.3) H 07/15/17 09:37 Hct 44.3 % (30.3-42.9) H 07/15/17 09:37 MCV 90 fl (79-97) 07/15/17 09:37 MCH 30 pg (28-32) 07/15/17 09:37 MCHC 34 % (30-34) 07/15/17 09:37 RDW 13.2 % (13.2-15.2) 07/15/17 09:37 Plt Count 324 K/mm3 (140-440) 07/15/17 09:37 Lymph % (Auto) 23.4 % (13.4-35.0) 07/15/17 09:37 [place] % (Auto) 6.7 % (0.0-7.3) 07/15/17 09:37 Eos % (Auto) 0.5 % (0.0-4.3) 07/15/17 09:37 Baso % (Auto) 0.2 % (0.0-1.8) 07/15/17 09:37 Lymph # 2.2 K/mm3 (1.2-5.4) 07/15/17 09:37 [place] # 0.6 K/mm3 (0.0-0.8) 07/15/17 09:37 Eos # 0.0 K/mm3 (0.0-0.4) 07/15/17 09:37 Baso # 0.0 K/mm3 (0.0-0.1) 07/15/17 09:37 Seg Neutrophils % 69.2 % (40.0-70.0) 07/15/17 09:37 Seg Neutrophils # 6.4 K/mm3 (1.8-7.7) 07/15/17 09:37 Sodium 136 mmol/L (137-145) L 07/18/17 05:10 Potassium 3.5 mmol/L (3.6-5.0) L 07/18/17 05:10 Chloride 101.2 mmol/L (98-107) 07/18/17 05:10 Carbon Dioxide 23 mmol/L (22-30) 07/18/17 05:10 Anion Gap 15 mmol/L 07/18/17 05:10 BUN 9 mg/dL (7-17) 07/18/17 05:10 Creatinine 0.4 mg/dL (0.7-1.2) L 07/18/17 05:10 Estimated GFR > 60 ml/min 07/18/17 05:10 BUN/Creatinine Ratio 23 % 07/18/17 05:10 Glucose 266 mg/dL (65-100) H 07/18/17 05:10 POC Glucose 176 (70-105) H 07/18/17 17:12 Hemoglobin A1c 14.0 % (4-6) H 07/15/17 09:37 Lactic Acid 1.30 mmol/L (0.7-2.0) 07/15/17 13:50 Calcium 8.5 mg/dL (8.4-10.2) 07/18/17 05:10 Phosphorus 2.40 mg/dL (2.5-4.5) L 07/18/17 05:10 Magnesium 1.80 mg/dL (1.7-2.3) 07/18/17 05:10 Total Bilirubin 0.30 mg/dL (0.1-1.2) 07/18/17 05:10 AST 70 units/L (5-40) H 07/18/17 05:10 ALT 143 units/L (7-56) H 07/18/17 05:10 Alkaline Phosphatase 91 units/L (35-129) 07/18/17 05:10 Total Protein 6.0 g/dL (6.3-8.2) L D 07/18/17 05:10 Albumin 3.3 g/dL (3.9-5) L 07/18/17 05:10 Albumin/Globulin Ratio 1.2 % 07/18/17 05:10 TSH 2.180 mlU/mL (0.270-4.200) 07/15/17 09:37 Free T4 1.30 ng/dL (0.76-1.46) 07/15/17 09:37 Urine Color Yellow (Yellow) 07/15/17 12:45 Urine Turbidity Hazy (Clear) 07/15/17 12:45 Urine pH 5.0 (5.0-7.0) 07/15/17 12:45 Ur Specific [place] 1.023 (1.003-1.030) 07/15/17 12:45 Urine Protein 30 mg/dl mg/dL (Negative) 07/15/17 12:45 Urine Glucose (UA) >=500 mg/dL (Negative) 07/15/17 12:45 Urine Ketones 80 mg/dL (Negative) 07/15/17 12:45 Urine Blood Lg (Negative) 07/15/17 12:45 Urine Nitrite Neg (Negative) 07/15/17 12:45 Ur Reducing Substances Not Reportable 07/15/17 12:45 Urine Bilirubin Neg (Negative) 07/15/17 12:45 Urine Ictotest Not Reportable 07/15/17 12:45 Urine Urobilinogen < 2.0 mg/dL (<2.0) 07/15/17 12:45 Ur Leukocyte Esterase Sm (Negative) 07/15/17 12:45 Urine WBC (Auto) 7.0 /HPF (0.0-6.0) H 07/15/17 12:45 Urine RBC (Auto) 59.0 /HPF (0.0-6.0) 07/15/17 12:45 U Epithel Cells (Auto) 5.0 /HPF (0-13.0) 07/15/17 12:45 Urine Bacteria (Auto) 1+ /HPF (Negative) 07/15/17 12:45 Urine Mucus Few /HPF 07/15/17 12:45 Urine HCG, Qual Negative (Negative) 07/15/17 12:45 Hepatitis A IgM Ab Non-reactive (NonReactive) 07/17/17 15:30 Hep Bs Antigen Non-reactive (Negative) 07/17/17 15:30 Hep B Core IgM Ab Non-reactive (NonReactive) 07/17/17 15:30 Hepatitis C Antibody Non-reactive (NonReactive) 07/17/17 15:30
[2017-07-18] MEDS ORDERED: LANTUS SUB-Q SCH (22:00)
[2017-07-18] MEDS: LOVENOX SUB-Q SCH (22:54)
[2017-07-19] MEDS: SODIUM CHLORIDE FLUSH SYRINGE 10 ML IV SCH ×2 (03:03→11:05)
[2017-07-19 06:00] LABS: Basophils % (Auto) 0.3 % (0.0-1.8); Eosinophils # (Auto) 0.1 K/mm3 (0.0-0.4); Eosinophils % (Auto) 2.2 % (0.0-4.3); Hematocrit 37.7 % (30.3-42.9); Hemoglobin 12.8 gm/dl (10.1-14.3); Lymphocytes # (Auto) 2.3 K/mm3 (1.2-5.4); Lymphocytes % (Auto) 47.2 % (13.4-35.0); Mean Corpuscular HGB Conc 34 % (30-34); Mean Corpuscular Hemoglobin 30 pg (28-32); Mean Corpuscular Volume 89 fl (79-97); Monocytes # (Auto) 0.4 K/mm3 (0.0-0.8); Monocytes % (Auto) 7.9 % (0.0-7.3); Platelet Count 201 K/mm3 (140-440); Red Blood Count 4.26 M/mm3 (3.65-5.03); Red Cell Distribution Width 13.5 % (13.2-15.2)
[2017-07-19 06:50] LABS: Alanine Aminotransferase 139 units/L (7-56); Albumin 3.3 g/dL (3.9-5); BUN/Creatinine Ratio 23; Blood Urea Nitrogen 9 mg/dL (7-17); Calcium 8.9 mg/dL (8.4-10.2); Hemolysis Index 4
[2017-07-19] MEDS: HumaLOG SUB-Q SCH ×4 (08:56→12:17)
[2017-07-19] MEDS: VITAMIN D3 PO SCH (11:04)
[2017-07-19] MEDS: NACL 0.9% 1000 ML 1,000 ML IV SCH (11:09)
[2017-07-19] MEDS: cefTRIAXone 1 GM in NACL 0.9% 20 ML IV SCH (11:10)
--- NOTE | 2017-07-19 14:42 | Discharge Summary ---
Providers - Providers Date of Admission: 07/15/17 12:26 Date of discharge: 07/19/17 Attending physician: KISHOR FAIRCHILD Primary care physician: [employer] OPERATOR Hospitalization Reason for admission: generalized weakness and dizziness/DKA Condition: Serious Pertinent studies: Chest x-ray; normal study Hemoglobin A1c; 14 Hospital course: Very pleasant obese 42-year-old female patient with no significant past medical history was admitted through emergency room with the diabetic ketoacidosis. Admitted to ICU initiated DKA protocol, started on aggressive IV hydration and insulin drip per protocol Blood sugars were stabilized later transferred to medical floor Patient was placed on long-acting insulin, received diabetic education, nutrition education, blood sugars closely monitored and medications were optimized Patient's hemoglobin A1c is 14 Patient also had transaminitis, closely monitors trended down significantly Urine analysis was consistent with UTI, received total 5 days of empiric antibiotics with significant improvement of symptoms Today patient is comfortable no new complaints Vital signs are stable [id number] evaluation and physical examination done by me prior to discharge, is unremarkable Patient counseled diet modification, exercise as tolerated and weight reduction Case management has evaluated the patient, set up home health nurse for disease education and close monitoring of diabetes Patient is stable at the time of discharge And advised to follow with primary care physician, as well as see private gleason operator as needed Discharge diagnosis; --Diabetic ketoacidosis; resolved --Type 2 diabetes mellitus; new onset --Transaminitis; trending down, --Urinary tract infection; received 5 days of antibiotics --Obesity Disposition: [id number] HOME UNDER [facility] Time spent for discharge: 32 min Core Measure Documentation - Palliative Care Palliative Care/ Comfort Measures: Not Applicable - Core Measures Any of the following diagnoses?: none Exam - Constitutional Vitals: Temp Pulse Resp BP Pulse Ox 97.9 F 65 18 115/69 98 07/19/17 07:57 07/19/17 07:57 07/19/17 07:57 07/19/17 07:57 07/19/17 07:57 General appearance: Present: no acute distress, well-nourished, obese - EENT Eyes: Present: PERRL, EOM intact - Neck Neck: Present: supple, normal ROM - Respiratory Respiratory effort: normal Respiratory: negative: rales, rhonchi, wheezing - Cardiovascular Rhythm: regular Heart Sounds: Present: S1 & S2 - Extremities Extremities: no ischemia, No edema - Abdominal General gastrointestinal: Present: soft, non-tender, non-distended, normal bowel sounds - Integumentary Integumentary: Present: clear, warm - Musculoskeletal Musculoskeletal: strength equal bilaterally - Psychiatric Psychiatric: appropriate mood/affect, cooperative - Neurologic Neurologic: CNII-XII intact, moves all extremities Plan Activity: no restrictions Diet: diabetic Additional Instructions: Diet modification and exercise as tolerated and weight reduction and stable. Check a primary care physician in 3-4 days for close monitoring of blood sugars Follow up with: PRIMARY CARE, [Primary Care Provider] - 3-5 Days CLARISSA SALVADOR MD [Staff Physician] - 7 Days Prescriptions: Insulin Glargine [Lantus VIAL] 32 units SUB-Q QHS 30 Days units Lispro Insulin [Humalog] 15 unit SUB-Q AC 30 Days units Lispro Insulin [Humalog] See Protocol SUB-Q ACHS 30 Days units Other Discharge Orders: Glucometer supplies[Amb] Location: None Selected Glucometer (Amb) Location: None Selected
[2017-07-19 16:50] VITALS: BP 122/78
== END 2017-07-19 16:45 | disposition home health service (06) | DRG 638 ==
LOC: ED 08:58 → CC1 12:26 → 3A 07-16 16:20
PROVIDERS: ADMIT Internal Medicine; ATTEND Internal Medicine
PROC: 3E0234Z Introduction of Serum, Toxoid and Vaccine into Muscle, Percutaneous Approach (ICD-10-PCS; principal; 2017-07-16)
DX: E11.10 Type 2 diabetes mellitus with ketoacidosis without coma (principal); N39.0 Urinary tract infection, site not specified; E87.6 Hypokalemia; E86.0 Dehydration; R74.0 Nonspecific elevation of levels of transaminase and lactic acid dehydrogenase [LDH]; E66.9 Obesity, unspecified; Z68.36 Body mass index [BMI] 36.0-36.9, adult; Z23 Encounter for immunization; Z82.49 Family history of ischemic heart disease and other diseases of the circulatory system
CPT/HCPCS: 36415; 71045; 80048; 80053; 80074; 81001; 81025; 82140; 82962; 83036; 83735; 84100; 84439; 84443; 85025; 90686; 93005; 93010; J0696; J1650; J1815; J3480; J7030; J7070